=== PATIENT | female | born 1985 | race Caucasian/White ===

== ENCOUNTER 2018-04-20 19:14 | Emergency (ER) | payer MEDICAID ==
[2018-04-20] MEDS ORDERED: traMADol 50 MG Tab PO ONE (19:15)
--- NOTE | 2018-04-20 19:19 | EDM.PDOC ---
ED HPI GENERAL MEDICAL PROBLEM - General Stated Complaint: DENTAL PAIN Time Seen by Provider: 04/20/18 19:19 Source of Information: Reports: Patient History Limitations: Reports: No Limitations - History of Present Illness INITIAL COMMENTS - FREE TEXT/NARRATIVE: 32 y.o.w.f came to the ed due to dental pain, pt took Tylenol, Motrin without pain improvement, no trauma, no other act medical issue. 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, NSAIDS tooth Pain Score (Numeric/FACES): 10 - Related Data Allergies Allergy/AdvReac Type Severity Reaction Status Date / Time No Known Allergies Allergy Verified 04/20/18 19:23 Home Meds: Home Meds Acetaminophen [Tylenol] 650 mg PO Q4H PRN #0 tablet 01/24/15 [Rx] Ibuprofen [Motrin] 800 mg PO Q8H PRN #0 tablet 01/24/15 [Rx] Amoxicillin/Potassium Clav [Augmentin 875-125 Tablet] 1 each PO BID #20 tablet 04/20/18 [Rx] FLUoxetine HCl [Prozac] 20 mg PO DAILY 04/20/18 [History] Norgestimate-Ethinyl Estradiol [Tri-Linyah Tablet] 1 tab PO DAILY 04/20/18 [ History] OLANZapine 20 mg PO DAILY 04/20/18 [History] hydrOXYzine pamoate [Hydroxyzine Pamoate] 25 mg PO DAILY 04/20/18 [History] lamoTRIgine [Lamotrigine] 150 mg PO DAILY 04/20/18 [History] traZODone HCl [Trazodone HCl] 100 mg PO BEDTIME 04/20/18 [History] ED ROS ENT - Review of Systems Review Of Systems: See Below Constitutional: Reports: No Symptoms HEENT: Reports: Dental Pain Respiratory: Reports: No Symptoms Cardiovascular: Reports: No Symptoms Endocrine: Reports: No Symptoms GI/Abdominal: Reports: No Symptoms : Reports: No Symptoms Musculoskeletal: Reports: No Symptoms Skin: Reports: No Symptoms Neurological: Reports: No Symptoms Psychiatric: Reports: No Symptoms Hematologic/Lymphatic: Reports: No Symptoms Immunologic: Reports: No Symptoms ED EXAM, ENT - Physical Exam Exam: See Below Exam Limited By: No Limitations General Appearance: Alert, WD/WN, Mild Distress, Obese Eye Exam: Bilateral Eye: Normal Inspection Ears: Normal External Exam, Normal Canal Nose: Normal Inspection, Normal Mucousa, No Blood Mouth/Throat: Dental Pain, Dental Tenderness, Gum Swelling Head: Atraumatic, Normocephalic Neck: Normal Inspection, Supple, Non-Tender, Full Range of Motion Respiratory/Chest: No Respiratory Distress, Lungs Clear, Normal Breath Sounds, Chest Non-Tender Cardiovascular: Normal Peripheral Pulses, Regular Rate, Rhythm, No Edema, No Gallop GI/Abdominal: Normal Bowel Sounds, Soft, Non-Tender, No Organomegaly, No Abnormal Bruit, No Mass, Pelvis Stable (Female) Exam: Deferred Rectal (Female) Exam: Deferred Back: Normal Inspection, Full Range of Motion Extremities: Normal Inspection, Normal Range of Motion, Non-Tender, No Pedal Edema, Normal Capillary Refill Neurological: Alert, Oriented, CN II-XII Intact, Normal Cognition, Normal Gait, Normal Reflexes, No Motor/Sensory Deficits Psychiatric: Normal Affect, Depressed Mood Skin: Warm, Dry, Intact, Normal Color, No Rash Lymphatic: No Adenopathy Course - Vital Signs Text/Narrative:: 32 y.o.w.f came to the ed due to dental pain, pt took Tylenol, Motrin without pain improvement, no trauma, no other act medical issue. BP 161/116 RR 18 Pulse ox 99% on Pulse 112 Temp 36.4 PE: WNWD W F with poor dentition/gingivitis Impression: Gingivitis, Poor dentition Tx: Augemntin, Ultram Reexam: Improved Plan: D/C with instructions Last Recorded V/S: Last Vital Signs Temp 37.3 C 04/20/18 19:20 Pulse 98 04/20/18 19:20 Resp 18 04/20/18 19:20 BP 158/98 H 04/20/18 19:20 Pulse Ox 99 04/20/18 19:20 - Orders/Labs/Meds Meds: Medications Discontinued Medications Generic Name Dose Route Start Last Admin Trade Name Freq PRN Reason Stop Dose Admin Amoxicillin/Clavulanate Potassium 1 tab 04/20/18 19:39 04/20/18 19:41 Augmentin 875 Mg/125 Mg PO 04/20/18 19:40 1 tab ONETIME ONE Administration Departure - Departure Time of Disposition: 19:40 Disposition: Home, Self-Care 01 Condition: Good Clinical Impression: Poor dentition, Gingivitis - Discharge Information Prescriptions: Amoxicillin/Potassium Clav [Augmentin 875-125 Tablet] 1 each PO BID #20 tablet Referrals: PCP,None [Primary Care Provider] - Forms: ED Department Discharge Additional Instructions: Please see a dentist A.S.A.P, take the meds as recommended, please come back if your symptoms get worse acutely
[2018-04-20] MEDS ORDERED: Amoxicillin/Clavulanate K 875-125 MG Tab PO ONE (19:39)
[2018-04-20 20:17] VITALS: BP 158/98
== END 2018-04-20 19:58 | disposition home or self-care (01) ==
LOC: FB.ED 19:14
DX: K05.10 Chronic gingivitis, plaque induced (principal); K08.9 Disorder of teeth and supporting structures, unspecified; Z79.899 Other long term (current) drug therapy
CPT/HCPCS: 99282; A9270